=== PATIENT | male | born 1990 | race Caucasian/White ===

== ENCOUNTER 2020-03-19 17:17 | Emergency (ER) | payer BC ==
[2020-03-19] MEDS ORDERED: TETANUS/DIPHTHERIA/PERTUSSIS 0.5 ML SYRINGE IM ONE (17:34)
[2020-03-19] MEDS ORDERED: BUFFERED LIDOCAINE 10 ML SYRINGE SUBQ STA (17:40)
--- NOTE | 2020-03-19 17:41 | ED Physician Documentation ---
PD HPI UPPER EXT INJURY - Stated complaint Stated Complaint: CUT L HAND INDEX FINGER - Chief complaint Chief Complaint: Laceration - History obtained from History obtained from: Patient (He was building a chair at home and cut himself with a band saw on the left, nondominant finger. No other injuries. Tetanus is unknown.) Review of Systems Constitutional: reports: Reviewed and negative Nose: reports: Reviewed and negative Throat: reports: Reviewed and negative PD PAST MEDICAL HISTORY - Past Medical History Cardiovascular: None Respiratory: None Neuro: None Endocrine/Autoimmune: None GI: None : None HEENT: Other Psych: Depression Musculoskeletal: None Derm: None - Past Surgical History Past Surgical History: Yes - Present Medications Home Medications: Ambulatory Orders Medication Instructions Recorded Confirmed Cephalexin [Keflex] 500 mg PO Q6H #28 capsule 03/19/20 Hydrocodone/Acetaminophen 1 - 2 each PO Q6H PRN #14 tablet 03/19/20 [Hydrocodon-Acetaminophen 5-325] - Allergies Allergies/Adverse Reactions: Allergies Allergy/AdvReac Type Severity Reaction Status Date / Time Penicillins Allergy Hives Verified 03/19/20 17:23 - Social History Does the pt smoke?: No Smoking Status: Former smoker Does the pt drink ETOH?: Yes Does the pt have substance abuse?: No - Immunizations Immunizations are current?: No Immunizations: TDAP >10years/unknown - POLST Patient has POLST: No PD ED PE NORMAL - Vitals Vital signs reviewed: Yes - General General: Alert and oriented X 3, No acute distress - Extremities Extremities: Other (He has a laceration on the left index finger that basically goes parallel to the proximal nail plate and then out on the radial side of the finger measuring 1.5 cm total. He has intact sensation distal to this.) - Neuro Neuro: Alert and oriented X 3, Normal speech Results - Vitals Vitals: Vital Signs - 24 hr 03/19/20 17:23 Temperature 36.5 C Heart Rate 102 H Respiratory 16 Rate Blood Pressure 158/100 H O2 Saturation 98 Oxygen O2 Source Room air - Rads (name of study) L 2nd digit Radiology: EMP read contemporaneously (There is a little divot out of the distal phalanx underlying the laceration.) Procedures - Laceration (location) L 2nd finger Length in cm: 1.5 Wound type: Linear Neurovascular status: Sensory intact, Motor intact, Vascular intact Anesthesia: Lidocaine 1%, With bicarb Wound Preparation: Irrigated copiously NS Skin layer closure: Nylon, Interrupted, Size #-0 - enter number (5-0) Other: Tetanus booster given Complexity: Simple - Splint (location) L 2nd finger Splint applied by: Tech Type of splint: Metal foam finger splint Other: Patient tolerated well, No complications, Neurovascular intact Departure - Departure Disposition: 01 Home, Self Care Clinical Impression: Laceration of left index finger Qualifiers: Encounter type: initial encounter Damage to nail status: with damage Foreign body presence: without foreign body Qualified Code(s): S61.311A - Laceration without foreign body of left index finger with damage to nail, initial encounter Open fracture of phalanx of digit of hand Qualifiers: Encounter type: initial encounter Qualified Code(s): S62.609B - Fracture of unspecified phalanx of unspecified finger, initial encounter for open fracture Condition: Good Instructions: ED Laceration Hand Follow-Up: [facility] [Provider Group] - Within 1 week (CALL THURSDAY) Prescriptions: Cephalexin [Keflex] 500 mg PO Q6H #28 capsule Hydrocodone/Acetaminophen [Hydrocodon-Acetaminophen 5-325] 1 - 2 each PO Q6H PRN #14 tablet PRN Reason: pain Comments: Come back for any signs of infection which would include: Redness, swelling, drainage, increased pain, or fevers. You can wash it soap and water. Keep it covered and moist with bacitracin ointment which is available over the counter; avoid neosporin. Follow-up with your physician in 10-14 days for suture removal. Your blood pressure was elevated today on check into the emergency department. This does not mean that you have hypertension, it is a common phenomenon to come to the emergency department and have elevated blood pressure. I recommend that you see your primary care physician within the week to have it rechecked when you are feeling better. You can take the splint off briefly to wash it, but for the most part keep it on and dry with a dressing underneath it. Forms: Activity restrictions
[2020-03-19] MEDS ORDERED: CEPHALEXIN 250 MG Prepack 8 CAP BOTTLE PO STA (18:13)
[2020-03-19] MEDS ORDERED: cephALEXin 250 MG CAPSULE PO STA (18:13)
[2020-03-19] MEDS ORDERED: HYDROcod/ACET 5/325 Prepack 4 PO STA (18:27)
[2020-03-19 18:43] VITALS: BP 137/101
--- NOTE | 2020-03-19 18:53 | XRAY Report ---
Reason: finger inj Procedure Date: 03/19/2020 Accession Number: [id number] / [id number] Procedure: XR - Finger(s) LT CPT Code: Final Report FULL RESULT: EXAM: LEFT SECOND DIGIT RADIOGRAPHY EXAM DATE: 03/19/2020 06:19 PM. CLINICAL HISTORY: Finger injury. COMPARISON: None. TECHNIQUE: 3 views. FINDINGS: Bones: There is a depressed cortical fracture involving the distal phalanx of the digit. No displaced bony fragments otherwise seen. Joints: Normal. No subluxations. Soft Tissues: Soft tissue laceration overlying the above bony defect. No radiopaque foreign body. IMPRESSION: Distal phalanx depressed cortical fracture underlying soft tissue laceration. [facility]
== END 2020-03-19 18:49 | disposition home or self-care (01) ==
LOC: ED 17:17
DX: S62.631B Displaced fracture of distal phalanx of left index finger, initial encounter for open fracture (principal); W29.8XXA Contact with other powered hand tools and household machinery, initial encounter; Y93.H3 Activity, building and construction; Y92.009 Unspecified place in unspecified non-institutional (private) residence as the place of occurrence of the external cause; R03.0 Elevated blood-pressure reading, without diagnosis of hypertension; Z87.891 Personal history of nicotine dependence
CPT/HCPCS: 12001; 73140; 90471; 90715; 99283; A9270